=== PATIENT | female | born 1985 | race Hispanic/Latino ===

== ENCOUNTER 2018-12-09 13:10 | Outpatient (CLI) | payer BC | END 2018-12-09 13:11 | disposition home or self-care (01) | LOC: C.PAT 13:10 | DX: D48.7 Neoplasm of uncertain behavior of other specified sites (principal) ==

== ENCOUNTER 2018-12-10 11:49 | Day surgery (SDC) | payer BC | END 2018-12-10 16:54 | disposition home or self-care (01) | LOC: C.SDS 11:49 | DX: D48.7 Neoplasm of uncertain behavior of other specified sites (principal) ==